=== PATIENT | female | born 1965 | race African-American/Black ===

== ENCOUNTER 2017-08-15 11:13 | Inpatient (IN) | payer OTHER, MEDICARE ==
[~2017-08-15] VITALS: Ht 157.5 cm; Wt 96.6 kg
[~2017-08-15 11:13] MED LIST: AZOR 10-40 MG1 EACH ORAL; HYDROXYZINE HCL25 M1 PO; LEVOTHYROXINE50 MCG ORAL; NORCO 10-325 T1 EACH ORAL; SULFAMETHOXAZO1 EAC1 ORAL
[2017-08-15] MEDS ORDERED: BYSTOLIC10 MG ORAL (11:24)
[2017-08-15] MEDS ORDERED: MULTIVITAMINS1 EAC2 ORAL (11:24)
--- NOTE | 2017-08-15 11:46 | Emergency Room Report ---
History of Present Illness General Chief Complaint: General Complaint Source: Patient Present Illness HPI 52-year-old female, no significant past medical history, presenting with hidradenitis under breast. Patient states that she was operated on in 2016. Now here for admission for surgery. Denies any fever chills. No other complaints Allergies: Coded Allergies: No Known Allergies (Unverified , 01/19/16) Patient History Past Medical History: see triage record Past Surgical History: none Pertinent Family History: none Last Menstrual Period: Post Reviewed Nursing Documentation: PMH: Agreed, PSxH: Agreed Nursing Documentation-PMH Hx Cardiac Problems: No - SLEEP APNEA Hx Hypertension: Yes Hx Pacemaker: No - HYPERTHYROIDISM, BILAT KNEE SURGERY Hx Cancer: No Hx Dialysis: No - Right rotator cuff repair. Carpal tunnel. Review of Systems All Other Systems: negative except mentioned in HPI Physical Exam Vital Signs Date Time Temp Pulse Resp B/P (MAP) Pulse Ox O2 Delivery O2 Flow Rate FiO2 08/15/17 11:19 97.9 58 17 162/95 99 Room Air 97.9 Sp02 EP Interpretation: reviewed, normal General Appearance: normal inspection, well appearing, no apparent distress, alert, GCS 15, non-toxic Head: normocephalic, atraumatic Eyes: bilateral eye normal inspection, bilateral eye PERRL, bilateral eye EOMI ENT: normal ENT inspection, normal pharynx, normal voice, moist mucus membranes Neck: normal inspection, full range of motion, supple Respiratory: normal inspection, lungs clear, normal breath sounds, no respiratory distress, no retraction, no wheezing, speaking full sentences, chest symmetrical Cardiovascular #1: normal inspection, regular rate, rhythm, normal capillary refill Cardiovascular #2: 2+ radial (R), 2+ radial (L) Gastrointestinal: normal inspection, non tender, soft, non-distended, no guarding Musculoskeletal: normal inspection, back normal, normal range of motion, non- tender Neurologic: normal inspection, alert, oriented x3, responsive, motor strength/ tone normal, sensory intact, normal gait, speech normal Psychiatric: normal inspection, judgement/insight normal, memory normal Skin: no rash, warm/dry, well hydrated, normal turgor, other - Under her breasts bilaterally noted to have some erythema, surgical markings Medical Decision Making Diagnostic Impression: Primary Impression: Hidradenitis suppurativa ER Course 52-year-old female, here for surgical removal for hydradenitis Plan: Obtain labs, ua ER course: Patient has been monitored during ED stay, HD stable Disposition: Patient is to be admitted to Med Surg D/W hospitalist Dr Carlson covering for Dr Goncalves Please note that this Emergency Department Report was dictated using Aseptiabicycle repair technician technology software, occasionally this can lead to erroneous entry secondary to interpretation by the dictation equipment. EKG Diagnostic Results EP Interpretation: Yes Rate: normal Rhythm: NSR ST Segments: No acute changes ASA given to patient: No Laboratory Tests Test 08/15/17 11:58 08/15/17 12:25 White Blood Count 7.8 K/UL (4.8-10.8) Red Blood Count 5.54 M/UL (4.20-5.40) H Hemoglobin 15.9 G/DL (12.0-16.0) Hematocrit 47.1 % (37.0-47.0) H Mean Corpuscular Volume 85 FL (80-99) Mean Corpuscular Hemoglobin 28.8 PG (27.0-31.0) Mean Corpuscular Hemoglobin Concent 33.8 G/DL (32.0-36.0) Red Cell Distribution Width 11.8 % (11.6-14.8) Platelet Count 257 K/UL (150-450) Mean Platelet Volume 7.8 FL (6.5-10.1) Neutrophils (%) (Auto) 74.5 % (45.0-75.0) Lymphocytes (%) (Auto) 16.7 % (20.0-45.0) L Monocytes (%) (Auto) 6.0 % (1.0-10.0) Eosinophils (%) (Auto) 2.1 % (0.0-3.0) Basophils (%) (Auto) 0.7 % (0.0-2.0) Sodium Level 142 MMOL/L (136-145) Potassium Level 3.6 MMOL/L (3.5-5.1) Chloride Level 103 MMOL/L (98-107) Carbon Dioxide Level 31 MMOL/L (21-32) Anion Gap 8 mmol/L (5-15) Blood Urea Nitrogen 11 mg/dL (7-18) Creatinine 1.0 MG/DL (0.55-1.30) Estimate Glomerular Filtration Rate > 60 mL/min (>60) Glucose Level 73 MG/DL (74-106) L Calcium Level 9.6 MG/DL (8.5-10.1) Total Bilirubin 0.8 MG/DL (0.2-1.0) Aspartate Amino Transferase (AST) 24 U/L (15-37) Alanine Aminotransferase (ALT) 21 U/L (12-78) Alkaline Phosphatase 92 U/L (46-116) Total Protein 9.2 G/DL (6.4-8.2) H Albumin 3.6 G/DL (3.4-5.0) Globulin 5.6 g/dL Albumin/Globulin Ratio 0.6 (1.0-2.7) L Prothrombin Time Pending Prothrombin Time INR Pending PTT Pending Last Vital Signs Date Time Temp Pulse Resp B/P (MAP) Pulse Ox O2 Delivery O2 Flow Rate FiO2 08/15/17 11:19 97.9 58 17 162/95 99 Room Air 97.9 Disposition: ADMITTED INPATIENT Condition: Serious Stacy Caballero M.D. Aug 15, 2017 11:46
[2017-08-15 11:50] VITALS: BP 112/72
[2017-08-15 12:19] LABS: BASOPHILS % (AUTO) 0.7 % (0.0-2.0); EOSINOPHILS % (AUTO) 2.1 % (0.0-3.0); HEMATOCRIT 47.1 % (37.0-47.0); HEMOGLOBIN 15.9 G/DL (12.0-16.0); LYMPHOCYTES % (AUTO) 16.7 % (20.0-45.0); MEAN CORPUSCULAR VOLUME 85 FL (80-99); NEUTROPHILS % (AUTO) 74.5 % (45.0-75.0); PLATELET COUNT 257 K/UL (150-450); RED BLOOD COUNT 5.54 M/UL (4.20-5.40); RED CELL DISTRIBUTION WIDTH 11.8 % (11.6-14.8); WHITE BLOOD COUNT 7.8 K/UL (4.8-10.8)
[2017-08-15 12:25] LABS: ANION GAP 8 mmol/L (5-15); BLOOD UREA NITROGEN 11 mg/dL (7-18); CALCIUM 9.6 MG/DL (8.5-10.1); CARBON DIOXIDE 31 MMOL/L (21-32); CHLORIDE 103 MMOL/L (98-107); POTASSIUM 3.6 MMOL/L (3.5-5.1); SODIUM 142 MMOL/L (136-145)
[2017-08-15 12:30] LABS: ALANINE AMINOTRANSFERASE 21 U/L (12-78); ALBUMIN 3.6 G/DL (3.4-5.0); ALBUMIN/GLOBULIN RATIO 0.6 (1.0-2.7); ALKALINE PHOSPHATASE 92 U/L (46-116); ASPARTATE AMINO TRANSFERASE 24 U/L (15-37); BILIRUBIN,TOTAL 0.8 MG/DL (0.2-1.0)
[2017-08-15] MEDS ORDERED: Acetaminophen 650 MG SUPP RECTAL PRN ×2 (13:00)
[2017-08-15] MEDS ORDERED: Morphine Sulfate 4mg/ml Inj IVP PRN ×2 (13:00)
--- NOTE | 2017-08-15 13:43 | History and Physical ---
History of Present Illness General Date patient seen: Aug 15, 2017 Time patient seen: 13:43 Reason for Hospitalization: Abscess Present Illness HPI 52y/o female with pmh of HTN, ELIDA on CPAP, Hidradenitis suppurative who presents with with b/l breast lesions w/ pain/swelling/redness. Pt notes worsening symptoms for the past few weeks. Denies f/c, n/v, d/c, chest pain, SOB. Pt states at baseline able to ambulate several blocks and climb at least a flight of stairs w/o symptoms. She also exercises. She was here in Jan 2016 for b/l axillary HS lesions. Her first surgery was complicated by postoperative respiratory failure and she was kept intubated and extubated the following day. It was thought secondary to her ELIDA and some fluid overload. Her 2nd surgery went better. She denies any new cardiac or pulmonary issues since. Allergies: Coded Allergies: No Known Allergies (Unverified , 01/19/16) Medication History Scheduled Amlodipine Bes/Olmesartan Med 10-40 Mg Tablet (Janette 10-40 Mg Tablet), 1 TAB ORAL DAILY, (Reported) Multivitamins* (Multivitamins*), 1 TAB ORAL DAILY, (Reported) Nebivolol Hcl (Bystolic*), 10 MG ORAL DAILY, (Reported) Patient History History Provided By: Patient, Family Member, Medical Record, PMD Healthcare decision maker Resuscitation status Advanced Directive on File Past Medical/Surgical History Past Medical/Surgical History: (1) ELIDA on CPAP (2) Morbid obesity (3) Hypertension (4) Hypothyroid (5) Hidradenitis suppurativa Family History Family History: Patient reports no known family medical history. Social History Social History: (1) No significant social history Review of Systems Constitutional: Reports: weakness Eye: Reports: no symptoms ENT: Reports: no symptoms Respiratory: Reports: no symptoms Cardiovascular: Reports: no symptoms Gastrointestinal: Reports: no symptoms Genitourinary: Reports: no symptoms Musculoskeletal: Reports: no symptoms Skin: Reports: no symptoms Psychiatric: Reports: no symptoms Neurological: Reports: no symptoms Endocrine: Reports: no symptoms Hematologic/Lymphatic: Reports: no symptoms All Other Systems: negative except mentioned in HPI Physical Exam Physical Exam Narrative General: alert, cooperative, no distress, appears stated age Head: normocephalic, without obvious abnormality, atraumatic Eyes: conjunctivae/corneas clear. PERRL, EOM's intact Throat: lips, mucosa, and tongue normal. MMM Neck: supple, symmetrical, trachea midline, and no JVD Lungs: clear to auscultation bilaterally Heart: regular rate and rhythm, S1, S2 normal, no murmur, click, rub or gallop Abdomen: soft, non-tender, non-distended, bowel sounds normal Extremities: extremities normal, atraumatic, no cyanosis or edema Pulses: 2+ and symmetric Skin: skin color, texture, turgor normal; no rashes or lesions Neurologic: grossly normal, no focal deficits Last 24 Hour Vital Signs Date Time Temp Pulse Resp B/P (MAP) Pulse Ox O2 Delivery O2 Flow Rate FiO2 08/15/17 13:10 97.9 65 17 112/72 99 Room Air 97.9 08/15/17 11:50 97.9 17 112/72 99 Room Air 97.9 08/15/17 11:19 97.9 58 17 162/95 99 Room Air 97.9 Laboratory Tests Test 08/15/17 11:58 08/15/17 12:25 White Blood Count 7.8 K/UL (4.8-10.8) Red Blood Count 5.54 M/UL (4.20-5.40) H Hemoglobin 15.9 G/DL (12.0-16.0) Hematocrit 47.1 % (37.0-47.0) H Mean Corpuscular Volume 85 FL (80-99) Mean Corpuscular Hemoglobin 28.8 PG (27.0-31.0) Mean Corpuscular Hemoglobin Concent 33.8 G/DL (32.0-36.0) Red Cell Distribution Width 11.8 % (11.6-14.8) Platelet Count 257 K/UL (150-450) Mean Platelet Volume 7.8 FL (6.5-10.1) Neutrophils (%) (Auto) 74.5 % (45.0-75.0) Lymphocytes (%) (Auto) 16.7 % (20.0-45.0) L Monocytes (%) (Auto) 6.0 % (1.0-10.0) Eosinophils (%) (Auto) 2.1 % (0.0-3.0) Basophils (%) (Auto) 0.7 % (0.0-2.0) Sodium Level 142 MMOL/L (136-145) Potassium Level 3.6 MMOL/L (3.5-5.1) Chloride Level 103 MMOL/L (98-107) Carbon Dioxide Level 31 MMOL/L (21-32) Anion Gap 8 mmol/L (5-15) Blood Urea Nitrogen 11 mg/dL (7-18) Creatinine 1.0 MG/DL (0.55-1.30) Estimat Glomerular Filtration Rate > 60 mL/min (>60) Glucose Level 73 MG/DL (74-106) L Calcium Level 9.6 MG/DL (8.5-10.1) Total Bilirubin 0.8 MG/DL (0.2-1.0) Aspartate Amino Transf (AST/SGOT) 24 U/L (15-37) Alanine Aminotransferase (ALT/SGPT) 21 U/L (12-78) Alkaline Phosphatase 92 U/L (46-116) Total Protein 9.2 G/DL (6.4-8.2) H Albumin 3.6 G/DL (3.4-5.0) Globulin 5.6 g/dL Albumin/Globulin Ratio 0.6 (1.0-2.7) L Prothrombin Time 10.1 SEC (9.30-11.50) Prothromb Time International Ratio 1.0 (0.9-1.1) Activated Partial Thromboplast Time 22 SEC (23-33) L Height (Feet): 5 Height (Inches): 2.00 Weight (Pounds): 213 Medications Current Medications Medications (Trade) Dose Ordered Sig/Sundar Route PRN Reason Start Time Stop Time Status Last Admin Dose Admin Acetaminophen (Tylenol) 650 mg Q4H PRN ORAL Mild Pain (Pain Scale 1-3) 08/15/17 13:00 09/14/17 12:59 Acetaminophen (Tylenol) 650 mg Q4H PRN ORAL fever 08/15/17 13:00 09/14/17 12:59 Acetaminophen (Tylenol) 650 mg Q4H PRN RECTAL Mild Pain (Pain Scale 1-3) 08/15/17 13:00 09/14/17 12:59 Acetaminophen (Tylenol) 650 mg Q4H PRN RECTAL fever 08/15/17 13:00 09/14/17 12:59 Amlodipine Besylate (Norvasc) 10 mg DAILY ORAL 08/16/17 09:00 09/15/17 08:59 Bisacodyl (Dulcolax) 10 mg HSPRN PRN RECTAL Constipation 08/15/17 13:00 09/14/17 12:59 Dextrose (Dextrose 50%) STAT PRN IV Hypoglycemia 08/15/17 13:00 09/14/17 12:59 Dextrose/Sodium Chloride 1,000 ml @ 75 mls/hr [id number] IV 08/16/17 06:00 09/15/17 05:59 Diphenhydramine HCl (Benadryl) 25 mg Q6H PRN ORAL Itching/Pruritis 08/15/17 13:00 09/14/17 12:59 Docusate Sodium (Colace) 100 mg EVERY 12 HOURS ORAL 08/15/17 21:00 09/14/17 20:59 Levothyroxine Sodium (Synthroid) 50 mcg ACBREAKFAST ORAL 08/16/17 06:30 09/15/17 06:29 Morphine Sulfate (Morphine Sulfate) 2 mg Q4H PRN IVP Moderate Pain (Pain Scale 4-6) 08/15/17 13:00 08/22/17 12:59 Morphine Sulfate (Morphine Sulfate) 4 mg Q4H PRN IVP Severe Pain (Pain Scale 7-10) 08/15/17 13:00 08/22/17 12:59 Multivitamins (Multivitamins) 1 tab DAILY ORAL 08/16/17 09:00 09/15/17 08:59 Nebivolol (Bystolic) 10 mg DAILY ORAL 08/16/17 09:00 09/15/17 08:59 Ondansetron HCl (Zofran) 4 mg Q6H PRN IVP Nausea & Vomiting 08/15/17 13:00 09/14/17 12:59 Polyethylene Glycol (Miralax) 17 gm HSPRN PRN ORAL Constipation 08/15/17 21:00 09/14/17 20:59 Zolpidem Tartrate (Ambien) 5 mg HSPRN PRN ORAL Insomnia 08/15/17 21:00 08/22/17 20:59 Assessment/Plan Problem List: (1) Abscess ICD Codes: L02.91 - Cutaneous abscess, unspecified SNOMED: 475704372 (2) Hidradenitis suppurativa ICD Codes: L73.2 - Hidradenitis suppurativa SNOMED: 37019532 (3) Hypertension ICD Codes: I10 - Essential (primary) hypertension SNOMED: 18886514 (4) ELIDA on CPAP ICD Codes: G47.33 - Obstructive sleep apnea (adult) (pediatric) SNOMED: 05957565 Status: stable Assessment/Plan Admit inpt Surgery consulted Check blood cultures x 2 Empiric IV ancef Cont home meds: amlodipine, nebivolol Hold ARB prior to surgery and resume if BP tolerates Pt states no longer on synthroid Pain control, bowel regimen Supportive care If patient is required to have surgery, based on the patient's medical history, and other available ancillary data, the patient is a LOW/INTERMEDIATE risk for an INTERMEDIATE risk procedure. Per the most recent ACC/AHA guidelines, the patient does not need any further cardiopulmonary testing prior to the procedure and there do not appear to be any clear medical contraindications to proceeding with the proposed procedure. METs>4. D/w pt/family, RN, SW/CM, surgery regarding mgmt and dispo Mynor Addison M.D. Aug 15, 2017 13:43
--- NOTE | 2017-08-15 13:57 | Diagnostic Imaging Report ---
Indication: [id number] Comparison: 01/20/2016 A single view chest radiograph was obtained. Findings: No definite infiltrate or pulmonary vascular congestion identified. The heart is enlarged. The bones are unremarkable. Impression: No acute disease
[2017-08-15] MEDS ORDERED: Lidocaine 1% MPF 10mg/ml 5ml INJ PRN (14:00)
[2017-08-15] MEDS ORDERED: Heparin 2000 units/Ns 1000ml INJ PRN (14:00)
--- NOTE | 2017-08-15 14:11 | Anethesia Preoperative Eval ---
Anesthesia Pre-op PMH/ROS General Date of Evaluation: Aug 15, 2017 Time of Evaluation: 14:05 Anesthesiologist: Krunal ASA Score: ASA 3 Mallampati Score Class I : Soft palate, uvula, fauces, pillars visible Class II: Soft palate, uvula, fauces visible Class III: Soft palate, base of uvula visible Class IV: Only hard plate visible Mallampati Classification: Class III Surgeon: Marisel Diagnosis: Recurrent HS Surgical Procedure: Excision of bilateral breasts hydradenitis Anesthesia History: difficult airway Family History: no anesthesia problems Allergies: Coded Allergies: No Known Allergies (Unverified , 01/19/16) Medications: see eMAR Past Medical History Cardiovascular: Reports: HTN, Denies: CAD, DE, valve dz, arrhythmia, other Pulmonary: Reports: ELIDA, Denies: asthma, COPD, other Gastrointestinal/Genitourinary: Reports: GERD, Denies: CRI, ESRD, other Neurologic/Psychiatric: Reports: depression/anxiety, Denies: dementia, CVA, TIA, other Endocrine: Reports: hypothyroidism, Denies: DM, steroids, other HEENT: Denies: cataract (L), cataract (R), glaucoma, [place] (L), [place] (R), other Hematology/Immune: Reports: anemia - mild, Denies: DVT, bleeding disorder, other Musculoskeletal/Integumentary: Reports: other - recurrent HS, Denies: OA, RA, DJD, DDD, edema Other: obesity - S/p laparoscopic gastric sleve placement PMH Narrative: as above PSxH Narrative: surgical treatment of axillary HS Gastric bypass Anesthesia Pre-op Phys. Exam Physician Exam Last Vital Signs Date Time Temp Pulse Resp B/P (MAP) Pulse Ox O2 Delivery O2 Flow Rate FiO2 08/15/17 13:10 97.9 65 17 112/72 99 Room Air 97.9 Constitutional: NAD Neurologic: CN 2-12 intact Cardiovascular: RRR, no M/R/G Respiratory: other - diminished breath sounds bilateerally Gastrointestinal: other - morbid obesity Airway Exam Mallampati Score: Class III MO: limited Neck: short ROM: limited Teeth: missing Dentures: no upper, no lower Anesthesia Pre-op A/P Labs Hematology Test 08/15/17 11:58 White Blood Count 7.8 K/UL (4.8-10.8) Red Blood Count 5.54 M/UL (4.20-5.40) H Hemoglobin 15.9 G/DL (12.0-16.0) Hematocrit 47.1 % (37.0-47.0) H Mean Corpuscular Volume 85 FL (80-99) Mean Corpuscular Hemoglobin 28.8 PG (27.0-31.0) Mean Corpuscular Hemoglobin Concent 33.8 G/DL (32.0-36.0) Red Cell Distribution Width 11.8 % (11.6-14.8) Platelet Count 257 K/UL (150-450) Mean Platelet Volume 7.8 FL (6.5-10.1) Neutrophils (%) (Auto) 74.5 % (45.0-75.0) Lymphocytes (%) (Auto) 16.7 % (20.0-45.0) L Monocytes (%) (Auto) 6.0 % (1.0-10.0) Eosinophils (%) (Auto) 2.1 % (0.0-3.0) Basophils (%) (Auto) 0.7 % (0.0-2.0) Coagulation Test 08/15/17 12:25 Prothrombin Time 10.1 SEC (9.30-11.50) Prothromb Time International Ratio 1.0 (0.9-1.1) Activated Partial Thromboplast Time 22 SEC (23-33) L Chemistry Test 08/15/17 11:58 Sodium Level 142 MMOL/L (136-145) Potassium Level 3.6 MMOL/L (3.5-5.1) Chloride Level 103 MMOL/L (98-107) Carbon Dioxide Level 31 MMOL/L (21-32) Anion Gap 8 mmol/L (5-15) Blood Urea Nitrogen 11 mg/dL (7-18) Creatinine 1.0 MG/DL (0.55-1.30) Estimat Glomerular Filtration Rate > 60 mL/min (>60) Glucose Level 73 MG/DL (74-106) L Calcium Level 9.6 MG/DL (8.5-10.1) Total Bilirubin 0.8 MG/DL (0.2-1.0) Aspartate Amino Transf (AST/SGOT) 24 U/L (15-37) Alanine Aminotransferase (ALT/SGPT) 21 U/L (12-78) Alkaline Phosphatase 92 U/L (46-116) Total Protein 9.2 G/DL (6.4-8.2) H Albumin 3.6 G/DL (3.4-5.0) Globulin 5.6 g/dL Albumin/Globulin Ratio 0.6 (1.0-2.7) L Studies Pre-op Studies: EKG - NSR Risk Assessment & Plan Assessment: ASA 3 Plan: GA with LMA no paralysis. Status Change Before Surgery: No Pre-Antibiotics Drug: as scheduled YAMILA MUNGUIA M.D. Aug 15, 2017 14:11
[2017-08-15 14:15] VITALS: BP 116/68
--- NOTE | 2017-08-15 15:56 | Diagnostic Imaging Report ---
Indication: intermediate project manager venous access Findings: After the indications, procedure, risks, complications, and alternatives of the procedure were explained, written informed consent was obtained. The left upper extremity was prepped with alcohol. All elements of maximal sterile barrier technique were followed including usage of a cap, mask, sterile gown, sterile gloves, hand hygiene and a large sterile sheet. Sonographic evaluation of the upper extremity was performed demonstrating a patent and compressible basilic vein. Access was obtained under real-time ultrasound guidance (with utilization of sterile gel and sterile probe cover) and digital image was saved and archived. An .018 wire was introduced. Needle exchanged for a 5 Turkmen peel-away sheath. Measurements were obtained. A 5 Turkmen dual-lumen Power PICC line catheter was cut to 47 cm and introduced over the wire. Peel-away sheath and wire were removed.Catheter was secured to the skin using 2-0 Prolene suture. Both ports aspirate and flush easily. Fluoroscopic images show distal tip in the superior vena cava. Total fluoroscopic time 0.4 minutes Impression: Successful placement of an upper extremity PICC line catheter
[2017-08-15 16:00] VITALS: BP 130/71
[2017-08-15] MEDS: ceFAZolin sod 1 GM in NS 55 ML IVP SCH (17:24)
[2017-08-15 20:00] VITALS: BP 134/69
[2017-08-15] MEDS: Docusate 100mg cap ORAL SCH (21:00)
[2017-08-15] MEDS ORDERED: Zolpidem 5mg tab ORAL PRN (21:00)
[2017-08-15] MEDS ORDERED: Miralax 17gm pkt ORAL PRN (21:00)
[2017-08-15] MEDS: Dyna-Hex 2% Top Sol 2oz TOPIC SCH (21:09)
[2017-08-16] VITALS (14 sets, daily range): BP systolic 113–144; BP diastolic 58–82
[2017-08-16] MEDS: ceFAZolin sod 1 GM in NS 55 ML IVP SCH ×3 (00:32→16:43)
[2017-08-16] MEDS ORDERED: D5 1/2NS 1,000 ML IV SCH (06:00)
[2017-08-16] MEDS ORDERED: Lidocaine 1% 10mg/ml/EPI 0.01mg/ml 50ml INJ ONE (07:19)
[2017-08-16] MEDS ORDERED: Bacitracin 50000 Units Vial ONE (07:19)
[2017-08-16] MEDS ORDERED: NeoSporin Gu Irrig 1ml Amp IRRIG ONE (07:19)
[2017-08-16] MEDS ORDERED: Sterile Water Irrig 1000ml IRRIG ONE (08:00)
[2017-08-16] MEDS ORDERED: Propofol 200mg/20ml IV ONE (08:00)
[2017-08-16] MEDS ORDERED: NS Irrig 1000ml ONE (08:00)
[2017-08-16] MEDS ORDERED: Midazolam 2mg/2ml Inj ONE (08:00)
[2017-08-16] MEDS ORDERED: fentaNYL 100 mcg/2 mL IV ONE (08:00)
[2017-08-16] MEDS ORDERED: Lidocaine 1% MPF 10mg/ml 5ml ONE (08:00)
[2017-08-16] MEDS ORDERED: LR 1000ml ONE (08:00)
--- NOTE | 2017-08-16 08:16 | Pre-Procedure Note/Attestation ---
Pre-Procedure Note/Attestation Complete Prior to Procedure Planned Procedure: bilateral Procedure Narrative: Bilateral breast debridement and flap elevation Attestation I attest that I discussed the nature of the procedure; its benefits; risks and complications; and alternatives (and the risks and benefits of such alternatives ), prior to the procedure, with the patient (or the patient's legal customer care representative). I attest that, if there was a reasonable possibility of needing a blood transfusion, the patient (or the patient's legal customer care representative) was given the [facility] standardized written summary, pursuant to the Isaac [place] Blood Safety Act ([place] Health and Safety Code # 1645, as amended). I attest that I re-evaluated the patient just prior to the surgery and that there has been no change in the patient's H&P, except as documented below: RAMIREZ YUN Aug 16, 2017 08:16
[2017-08-16] MEDS ORDERED: Zolpidem 5mg tab ORAL PRN (08:30)
[2017-08-16] MEDS ORDERED: Rate Change PCA 1 Each MISC PRN (08:30)
[2017-08-16] MEDS ORDERED: PCA Education Pamphlet MISC ONE (08:30)
[2017-08-16] MEDS: Docusate 100mg cap ORAL SCH ×2 (09:00→21:13)
--- NOTE | 2017-08-16 09:26 | Operative Note - PDOC ---
Operative Note Operative Note Pre-op Diagnosis: Bilateral breast HS Procedure: Bilateral breast debridement and flap elevation Post-op Diagnosis: same as pre-op Surgeon: Marisel Drum Reel Cutter: Laureano Anesthesia: general Specimen: yes Complications: none Condition: stable Estimated Blood Loss: minimal Drains: none Implant(s) used?: No RAMIREZ YUN Aug 16, 2017 09:26
--- NOTE | 2017-08-16 09:42 | Immediate Post-Op Evaluation ---
Immediate Post-Op Evalulation Immediate Post-Op Evalulation Procedure: kellie breast debridment Date of Evaluation: Aug 16, 2017 Time of Evaluation: 09:41 IV Fluids: 300 Blood Pressure Systolic: 135 Blood Pressure Diastolic: 73 Pulse Rate: 79 Respiratory Rate: 14 O2 Sat by Pulse Oximetry: 98 Temperature (Fahrenheit): 98.2 Pain Score (1-10): 0 Nausea: No Vomiting: No Complications none Patient Status: awake, reacts, patent Hydration Status: adequate Drug: ancef Given Within 1 Hr of Incision: Yes Time Given: 08:30 TEAGAN LA CRNA Aug 16, 2017 09:42
[2017-08-16] MEDS ORDERED: Acetaminophen (Non formulary) 100 ML IV ONE (09:45)
[2017-08-16] MEDS ORDERED: fentaNYL 100 mcg/2 mL IV PRN (09:45)
[2017-08-16] MEDS: Hydromorphone 0.5mg/0.5ml inj IVP PRN ×3 (09:49→11:09)
[2017-08-16] MEDS ORDERED: Hydromorphone 0.5mg/0.5ml inj ONE (09:50)
[2017-08-16] MEDS: PCA HYDROmorphone 1mg/ml 30 ML IV PRN ×2 (10:25→11:10)
--- NOTE | 2017-08-16 11:40 | 48 Hour Post Anesthesia Eval ---
Post Anesthesia Evaluation Procedure: kellie breast debridment Date of Evaluation: Aug 16, 2017 Time of Evaluation: 11:38 Blood Pressure Systolic: 133 0: 72 Pulse Rate: 67 Respiratory Rate: 14 O2 Sat by Pulse Oximetry: 99 Airway: patent Nausea: No Vomiting: No Hydration Status: adequate Cardiopulmonary Status: stable Mental Status/LOC: patient returned to baseline Follow-up Care/Observations: na Post-Anesthesia Complications: none Follow-up care needed: N/A TEAGAN LA CRNA Aug 16, 2017 11:40
--- NOTE | 2017-08-16 14:08 | Cardiology Report ---
APPROVED REPORT EXAM: Two-dimensional and M-mode echocardiogram with Doppler and color Doppler. INDICATION Pre-Op M-Mode DIMENSIONS IVSd1.5 (0.7-1.1cm)Left Atrium (MM)3.9 (1.6-4.0cm) LVDd4.0 (3.5-5.6cm)Aortic Root3.6 (2.0-3.7cm) PWd1.7 (0.7-1.1cm)Aortic Cusp Exc.2.0 (1.5-2.0cm) LVDs2.2 (2.5-4.0cm) PWs2.3 cm Normal left ventricular chamber size, systolic function and wall motion. Left ventricular ejection fraction estimated to be 60-65 %. Mild left ventricular hypertrophy. No evidence of pericardial effusion. Mild bi-atrial enlargement. Right ventricular chamber size is within normal limits. Focal aortic valve sclerosis with adequate cusp excursion. Thickened mitral valve leaflets with normal excursion. Mitral annulus and aortic root calcification. Normal pulmonic valve structure. Normal tricuspid valve structure. IVC dilated at 2.2 cm with slight physiologic collapse suggestive of increased RA pressure. A color flow and spectral Doppler study was performed and revealed: Trace to mild aortic regurgitation. Moderate mitral regurgitation. Mitral inflow indicates normal left ventricular diastolic function. Mild tricuspid regurgitation. Tricuspid systolic velocities suggests peak right ventricular systolic pressure of 42 mmHg, consistent with mild pulmonary hypertension. Mild pulmonic regurgitation present.
--- NOTE | 2017-08-16 15:47 | Consultation ---
DATE OF CONSULTATION: 08/16/2017 HISTORY OF PRESENT ILLNESS: This is a 52-year-old female with a known history of hidradenitis suppurativa who has previously undergone axillary reconstruction for her disease, who presented to the emergency room with bilateral breasts disease. She has had frequent areas of tenderness associated with drainage and pain. She was admitted by the medical team and started on IV antibiotics. PAST MEDICAL HISTORY: Significant for morbid obesity and hidradenitis. PAST SURGICAL HISTORY: Significant for hidradenitis excision in the axilla with reconstruction. ALLERGIES: None. MEDICATIONS: Include antihypertensives. PHYSICAL EXAMINATION: GENERAL: The patient is alert and oriented. HEART: Regular rate and rhythm. ABDOMEN: Soft, nontender, and nondistended, but obese. BREASTS: Examination of the breast reveals bilateral inferior pole of the breast hidradenitis suppurativa. ASSESSMENT AND PLAN: This is a 52-year-old female with hidradenitis suppurativa affecting lower pole of her breast. She will require staged debridement and reconstruction. She understands the risks and benefits of surgery and agrees to proceed. Brina Joiner M.D. DR: MARIA E JOB#: [id number] CC:
--- NOTE | 2017-08-16 16:02 | Cardiology Report ---
APPROVED REPORT EKG Measurement Heart [id number] Normal sinus rhythm Minimal voltage criteria for LVH, may be normal variant Nonspecific T wave abnormality Prolonged QT Abnormal ECG
--- NOTE | 2017-08-16 16:31 | Operative Note - Dictated ---
DATE OF OPERATION: 08/16/2017 PREOPERATIVE DIAGNOSIS: Bilateral breast hidradenitis suppurativa. POSTOPERATIVE DIAGNOSIS: Bilateral breast hidradenitis suppurativa. PROCEDURES: 1. Radical excision of right lower pole of breast hidradenitis suppurativa. 2. Elevation of a Axel chest wall flap for closure of right breast wound measuring 18 cm x 6 cm. 3. Elevation of a lower breast pole flap for staged closure of right breast wound. 4. Radical excision of left breast lower pole hidradenitis suppurativa. 5. Elevation of a chest wall Axel flap for closure of left breast defect, measuring similarly 18 cm x 7 cm. 6. Elevation of a lower pole breast flap for closure of left breast wound. SURGEON: Brina Joiner M.D. BEE ROBBER: Ramesh Tinsley M.D. ANESTHESIA: General. COMPLICATIONS: None. DRAINS: None. DISPOSITION: Stable to the recovery room. INDICATIONS FOR SURGERY: This is a 52-year-old female with a known history of hidradenitis suppurativa, who has previously undergone radical excision and reconstruction of her bilateral axillary tissues. She is approximately one year out now and has done well and presents now with bilateral breast HS in the lower pole of her breast. She will need a staged approach with first radical excision of flap elevation and secondary flap closure of her wounds on the second operation. The risks and benefits were explained to the patient and she agreed to proceed. DETAILS OF THE OPERATION: The patient was brought to the operating room and laid in the supine position on the operating room table. Her chest was prepped and draped in a sterile and usual fashion. We first began by marking out the areas of disease under both breasts with marking pen. Once this was done, a total of 10 mL of lidocaine with epinephrine was injected in both areas of disease. Began on the right side first by using a #10 blade to make an elliptical incision and dissection was carried radically down to the chest wall fascia. The defect that was created measured 18 cm x 6 cm on this side and was not amenable to primary closure. As such, a Axel flap based off of the chest wall was elevated with dissection carried down above the rectus muscle fascia with perforators of the superior epigastric artery perfusing this flap. In a similar fashion, a lower breast full flap was elevated based off of perforators, coming off of the internal mammary artery, and once this flap was elevated, the wound was copiously irrigated with pulse lavage. We turned our attention to the contralateral left breast disease. A #10 blade was used to make a left breast incision. Radical incision was carried down to the chest wall to completely excise the area of disease and once this was done, in a similar fashion, the Axel flap was elevated on the left superior chest with perforators of the superior epigastric artery feeding this flap and once the flap was fully elevated, we also raised a lower breast pole flap with perforators off the internal mammary artery feeding this as well. Proximal and distal incisions made on all the flaps the fully mobilize them. Copious irrigation was performed with pulse lavage. Given the fact that this is an infected wound, the decision was made not to close the primary wound at this time. Wet-to-dry dressings were applied. The patient was brought back to the operating room within 48 hours for definitive flap advancement. Brina Joiner M.D. DR: MARIA E JOB#: [id number] CC:
[2017-08-16] MEDS: PCA shift volume MISC SCH (19:00)
[2017-08-16] MEDS: Dyna-Hex 2% Top Sol 2oz TOPIC SCH (21:13)
[2017-08-16] MEDS: Heparin 5000 units/ml inj SUBQ SCH (21:16)
--- NOTE | 2017-08-16 22:10 | General Progress Note ---
Assessment/Plan Problem List: (1) Abscess ICD Codes: L02.91 - Cutaneous abscess, unspecified SNOMED: 038104480 (2) Hidradenitis suppurativa ICD Codes: L73.2 - Hidradenitis suppurativa SNOMED: 48303023 (3) Hypertension ICD Codes: I10 - Essential (primary) hypertension SNOMED: 52470701 (4) ELIDA on CPAP ICD Codes: G47.33 - Obstructive sleep apnea (adult) (pediatric) SNOMED: 09156570 (5) Morbid obesity ICD Codes: E66.01 - Morbid (severe) obesity due to excess calories SNOMED: 891385538, [id number] Status: stable Assessment/Plan Appreciate surgery rec's s/p Bilateral breast debridement and flap elevation on 08/16/17 Empiric IV ancef F/u cultures Wound care per surgery Cont home meds but hold ARB for now Cont home CPAP Post operative recommendations include: - encourage mobilization/ambulation - encourage incentive spirometry to optimize pulmonary hygiene - DVT/GI prophylaxis as appropriate - ctm CBC and hemodynamics - ctm electrolytes, adjust/replete prn - pain control, supportive care, bowel regimen FULL CODE A total of 32min of extra time was spent on this encounter in addition to normal encounter time for care/coordination and counseling. D/w pt, RN, SW/CM, surgery regarding mgmt and dispo. D/w surgery re postop mgmt Subjective Date patient seen: Aug 16, 2017 Time patient seen: 14:00 ROS Limited/Unobtainable: No Constitutional: Reports: no symptoms HEENT: Reports: no symptoms Cardiovascular: Reports: no symptoms Respiratory: Reports: no symptoms Gastrointestinal/Abdominal: Reports: no symptoms Genitourinary: Reports: no symptoms Neurologic/Psychiatric: Reports: no symptoms Endocrine: Reports: no symptoms Hematologic/Lymphatic: Reports: no symptoms Allergies: Coded Allergies: No Known Allergies (Unverified , 01/19/16) All Systems: reviewed and negative except above Subjective No acute o/n events s/p Bilateral breast debridement and flap elevation today Pain controlled. Denies f/c, n/v, d/c, chest pain, SOB Objective Last 24 Hour Vital Signs Date Time Temp Pulse Resp B/P (MAP) Pulse Ox O2 Delivery O2 Flow Rate FiO2 08/16/17 20:38 98.1 66 20 125/76 96 Room Air 98.1 2/28/18 20:00 18 08/16/17 16:15 18 08/16/17 16:00 97.6 67 19 126/74 90 Room Air 97.6 08/16/17 12:15 18 08/16/17 11:45 18 08/16/17 11:40 67 14 99 08/16/17 11:15 18 08/16/17 11:00 97.2 65 19 132/77 94 Room Air 97.2 08/16/17 11:00 18 08/16/17 10:55 18 08/16/17 10:55 97.2 08/16/17 10:45 98.4 65 18 126/76 100 Nasal Cannula 3.0 98.4 08/16/17 10:45 97.2 08/16/17 10:40 18 08/16/17 10:30 70 13 123/70 100 Nasal Cannula 3.0 08/16/17 10:25 17 08/16/17 10:25 98.3 08/16/17 10:19 61 16 135/78 100 Nasal Cannula 3.0 08/16/17 10:19 98.3 08/16/17 10:10 60 19 144/82 100 Nasal Cannula 3.0 08/16/17 10:00 56 12 138/76 100 Nasal Cannula 3.0 08/16/17 09:49 64 15 138/77 100 Nasal Cannula 3.0 08/16/17 09:49 98.3 08/16/17 09:42 208.8 79 14 98 08/16/17 09:40 65 16 137/78 100 Simple Mask 6.0 08/16/17 09:35 67 20 128/73 100 Simple Mask 6.0 08/16/17 09:30 98.2 64 21 135/75 100 Simple Mask 6.0 98.2 08/16/17 04:00 98.4 50 18 128/66 100 98.4 08/16/17 00:00 98.1 51 18 113/58 100 98.1 Intake and Output 08/15/17 08/16/17 19:00 07:00 Intake Total 460 ml 375 ml Balance 460 ml 375 ml Intake Oral 460 ml 320 ml IV Total 55 ml # Voids 3 3 Height (Feet): 5 Height (Inches): 2.00 Weight (Pounds): 213 Objective General: alert, cooperative, no distress, appears stated age Head: normocephalic, without obvious abnormality, atraumatic Eyes: conjunctivae/corneas clear. PERRL, EOM's intact Throat: lips, mucosa, and tongue normal. MMM Neck: supple, symmetrical, trachea midline, and no JVD Lungs: clear to auscultation bilaterally Heart: regular rate and rhythm, S1, S2 normal, no murmur, click, rub or gallop Abdomen: soft, non-tender, non-distended, bowel sounds normal Extremities: extremities normal, atraumatic, no cyanosis or edema Pulses: 2+ and symmetric Skin: skin color, texture, turgor normal; dressings c/d/i Neurologic: grossly normal, no focal deficits Mynor Addison M.D. Aug 16, 2017 22:10
[2017-08-17] VITALS: BP 124/70
[2017-08-17] MEDS: ceFAZolin sod 1 GM in NS 55 ML IVP SCH ×3 (01:06→16:57)
[2017-08-17 04:00] VITALS: BP 137/75
[2017-08-17] MEDS: Heparin 5000 units/ml inj SUBQ SCH ×3 (05:37→21:17)
[2017-08-17] MEDS: PCA shift volume MISC SCH ×2 (07:31→19:17)
[2017-08-17 08:00] VITALS: BP 112/66
[2017-08-17] MEDS: Docusate 100mg cap ORAL SCH ×2 (09:00→21:00)
--- NOTE | 2017-08-17 09:41 | General Progress Note ---
Progress Note Progress Note Pt seen and examined. She is now POD# 1 from bilateral breast tissue excision and flap elevation. Doing well. To OR in Am for closure of wounds. Ramirez Yun M.D. RAMIREZ YUN Aug 17, 2017 09:41
[2017-08-17] MEDS: PCA HYDROmorphone 1mg/ml 30 ML IV PRN (10:26)
--- NOTE | 2017-08-17 11:11 | 48 Hour Post Anesthesia Eval ---
Post Anesthesia Evaluation Procedure: kellie breast debridment Date of Evaluation: Aug 17, 2017 Time of Evaluation: 11:10 Blood Pressure Systolic: 118 0: 64 Pulse Rate: 72 Respiratory Rate: 20 Temperature (Fahrenheit): 97.6 O2 Sat by Pulse Oximetry: 99 Airway: patent Nausea: No Vomiting: No Pain Intensity: 3 Hydration Status: adequate Cardiopulmonary Status: stable Mental Status/LOC: patient returned to baseline Follow-up Care/Observations: n/a Post-Anesthesia Complications: none Follow-up care needed: N/A YAMLIA MUNGUIA M.D. Aug 17, 2017 11:11
[2017-08-17 12:00] VITALS: BP 127/73
--- NOTE | 2017-08-17 15:34 | General Progress Note ---
Assessment/Plan Problem List: (1) Abscess ICD Codes: L02.91 - Cutaneous abscess, unspecified SNOMED: 729377174 (2) Hidradenitis suppurativa ICD Codes: L73.2 - Hidradenitis suppurativa SNOMED: 57472972 (3) Hypertension ICD Codes: I10 - Essential (primary) hypertension SNOMED: 75811722 (4) ELIDA on CPAP ICD Codes: G47.33 - Obstructive sleep apnea (adult) (pediatric) SNOMED: 57446499 (5) Morbid obesity ICD Codes: E66.01 - Morbid (severe) obesity due to excess calories SNOMED: 734471249, [id number] Status: stable Assessment/Plan Appreciate surgery rec's s/p bilateral breast debridement and flap elevation on 08/16/17 Plan for 2nd surgery tomorrow, NPO at [place] Empiric IV ancef F/u cultures Wound care per surgery Cont home meds but hold ARB for now Cont home CPAP Post operative recommendations include: - encourage mobilization/ambulation - encourage incentive spirometry to optimize pulmonary hygiene - DVT/GI prophylaxis as appropriate - ctm CBC and hemodynamics - ctm electrolytes, adjust/replete prn - pain control, supportive care, bowel regimen FULL CODE A total of 31min of extra time was spent on this encounter in addition to normal encounter time for care/coordination and counseling. D/w pt, RN, SW/CM, surgery regarding mgmt and dispo. D/w surgery re postop mgmt Subjective Date patient seen: Aug 17, 2017 Time patient seen: 15:34 ROS Limited/Unobtainable: No Constitutional: Reports: no symptoms HEENT: Reports: no symptoms Cardiovascular: Reports: no symptoms Respiratory: Reports: no symptoms Gastrointestinal/Abdominal: Reports: no symptoms Genitourinary: Reports: no symptoms Neurologic/Psychiatric: Reports: no symptoms Endocrine: Reports: no symptoms Hematologic/Lymphatic: Reports: no symptoms Allergies: Coded Allergies: No Known Allergies (Unverified , 01/19/16) All Systems: reviewed and negative except above Subjective No acute o/n events s/p Bilateral breast debridement and flap elevation POD#1 Pain controlled. Denies f/c, n/v, d/c, chest pain, SOB Objective Last 24 Hour Vital Signs Date Time Temp Pulse Resp B/P (MAP) Pulse Ox O2 Delivery O2 Flow Rate FiO2 08/17/17 12:00 98.2 70 18 127/73 95 Room Air 98.2 08/17/17 12:00 18 08/17/17 11:11 207.7 72 20 99 08/17/17 10:31 18 08/17/17 10:30 18 08/17/17 09:03 77 112/66 08/17/17 08:00 18 08/17/17 08:00 97.4 77 20 112/66 97 Room Air 97.4 08/17/17 04:00 18 08/17/17 04:00 96.7 63 20 137/75 98 Room Air 96.7 08/17/17 00:00 18 08/17/17 00:00 97.9 65 20 124/70 97 Room Air 97.9 08/16/17 20:38 98.1 66 20 125/76 96 Room Air 98.1 08/16/17 20:00 18 08/16/17 16:15 18 08/16/17 16:00 97.6 67 19 126/74 90 Room Air 97.6 Intake and Output 08/16/17 08/17/17 19:00 07:00 Intake Total 680 ml 295 ml Output Total 8 ml Balance 672 ml 295 ml Intake Oral 240 ml IV Total 680 ml 55 ml Output Urine Total 3 ml Estimated Blood Loss 5 ml # Voids 2 Height (Feet): 5 Height (Inches): 2.00 Weight (Pounds): 213 Objective General: alert, cooperative, no distress, appears stated age Head: normocephalic, without obvious abnormality, atraumatic Eyes: conjunctivae/corneas clear. PERRL, EOM's intact Throat: lips, mucosa, and tongue normal. MMM Neck: supple, symmetrical, trachea midline, and no JVD Lungs: clear to auscultation bilaterally Heart: regular rate and rhythm, S1, S2 normal, no murmur, click, rub or gallop Abdomen: soft, non-tender, non-distended, bowel sounds normal Extremities: extremities normal, atraumatic, no cyanosis or edema Pulses: 2+ and symmetric Skin: skin color, texture, turgor normal; dressings c/d/i Neurologic: grossly normal, no focal deficits Mynor Addison M.D. Aug 17, 2017 15:34
[2017-08-17 16:00] VITALS: BP 128/78
[2017-08-17] MEDS: D5 1/2NS 1,000 ML IV SCH (16:03)
[2017-08-17 20:00] VITALS: BP 119/71
[2017-08-17] MEDS: Dyna-Hex 2% Top Sol 2oz TOPIC SCH (21:13)
[2017-08-18] VITALS (15 sets, daily range): BP systolic 105–164; BP diastolic 61–95
[2017-08-18] MEDS: ceFAZolin sod 1 GM in NS 55 ML IVP SCH ×3 (00:29→23:49)
[2017-08-18] MEDS: Heparin 5000 units/ml inj SUBQ SCH ×2 (05:05→20:44)
[2017-08-18] MEDS: D5 1/2NS 1,000 ML IV SCH ×4 (05:05→23:56)
[2017-08-18] MEDS ORDERED: Bacitracin 50000 Units Vial ONE (06:56)
[2017-08-18] MEDS ORDERED: Lidocaine 1% 10mg/ml/EPI 0.01mg/ml 50ml INJ ONE (06:56)
[2017-08-18] MEDS ORDERED: NeoSporin Gu Irrig 1ml Amp IRRIG ONE (06:56)
[2017-08-18] MEDS: PCA shift volume MISC SCH (07:23)
[2017-08-18] MEDS ORDERED: Sodium Chloride 10ml vial INJ ONE (07:30)
[2017-08-18] MEDS ORDERED: fentaNYL 100 mcg/2 mL IV ONE (07:30)
[2017-08-18] MEDS ORDERED: Propofol 200mg/20ml IV ONE (07:30)
[2017-08-18] MEDS ORDERED: Morphine Sulfate 10mg/ml Inj ONE (07:30)
[2017-08-18] MEDS ORDERED: Sterile Water Irrig 1000ml IRRIG ONE (07:30)
[2017-08-18] MEDS ORDERED: LR 1000ml ONE (07:30)
[2017-08-18] MEDS ORDERED: NS Irrig 1000ml ONE (07:30)
[2017-08-18] MEDS ORDERED: Midazolam 2mg/2ml Inj ONE (07:30)
--- NOTE | 2017-08-18 07:39 | Pre-Procedure Note/Attestation ---
Pre-Procedure Note/Attestation Complete Prior to Procedure Planned Procedure: bilateral Procedure Narrative: Bilateral breast wound closure Indications for Procedure Pre-Operative Diagnosis: Bilateral breast HS Attestation I attest that I discussed the nature of the procedure; its benefits; risks and complications; and alternatives (and the risks and benefits of such alternatives ), prior to the procedure, with the patient (or the patient's legal public health representative). I attest that, if there was a reasonable possibility of needing a blood transfusion, the patient (or the patient's legal public health representative) was given the [facility] standardized written summary, pursuant to the Isaac Gananda Blood Safety Act ([place] Health and Safety Code # 1645, as amended). I attest that I re-evaluated the patient just prior to the surgery and that there has been no change in the patient's H&P, except as documented below: RAMIREZ YUN Aug 18, 2017 07:39
[2017-08-18] MEDS ORDERED: Rate Change PCA 1 Each MISC PRN (07:45)
[2017-08-18] MEDS ORDERED: PCA Education Pamphlet MISC ONE (07:45)
[2017-08-18] MEDS ORDERED: Zolpidem 5mg tab ORAL PRN (07:45)
[2017-08-18] MEDS ORDERED: PCA HYDROmorphone 1mg/ml 30 ML IV PRN (07:45)
[2017-08-18] MEDS ORDERED: DiphenhydrAMINE 50mg/ml Inj IVP PRN ×2 (07:45→08:30)
[2017-08-18] MEDS ORDERED: Surgicel 4in x 8in TOPIC ONE (08:09)
[2017-08-18] MEDS ORDERED: LR 1000ml 1,000 ML IVLG SCH (08:22)
--- NOTE | 2017-08-18 08:22 | Anethesia Preoperative Eval ---
Anesthesia Pre-op PMH/ROS General Date of Evaluation: Aug 18, 2017 Time of Evaluation: 07:16 Anesthesiologist: Krunal ASA Score: ASA 3 Mallampati Score Class I : Soft palate, uvula, fauces, pillars visible Class II: Soft palate, uvula, fauces visible Class III: Soft palate, base of uvula visible Class IV: Only hard plate visible Mallampati Classification: Class III Surgeon: Marisel Diagnosis: Recurrent HS Surgical Procedure: Revision and closure of beasts wounds Anesthesia History: none Family History: no anesthesia problems Allergies: Coded Allergies: No Known Allergies (Unverified , 01/19/16) Past Medical History Cardiovascular: Reports: HTN, Denies: CAD, AR, valve dz, arrhythmia, other Pulmonary: Reports: ELIDA, Denies: asthma, COPD, other Gastrointestinal/Genitourinary: Reports: GERD, Denies: CRI, ESRD, other Neurologic/Psychiatric: Reports: depression/anxiety, Denies: dementia, CVA, TIA, other Endocrine: Reports: hypothyroidism, Denies: DM, steroids, other HEENT: Denies: cataract (L), cataract (R), glaucoma, CURYUNG (L), CURYUNG (R), other Hematology/Immune: Reports: anemia - mild, Denies: DVT, bleeding disorder, other Musculoskeletal/Integumentary: Denies: OA, RA, DJD, DDD, edema, other Other: obesity - morbid obesity s/p fastric bypass PMH Narrative: as above PSxH Narrative: Gastric bypass Surgical treatment of HS Anesthesia Pre-op Phys. Exam Physician Exam Last Vital Signs Date Time Temp Pulse Resp B/P (MAP) Pulse Ox O2 Delivery O2 Flow Rate FiO2 08/18/17 04:00 18 08/18/17 04:00 98.8 58 122/61 98 Room Air 98.8 08/16/17 10:45 3.0 Constitutional: NAD Neurologic: CN 2-12 intact Cardiovascular: RRR, no M/R/G Respiratory: CTA Gastrointestinal: other - Morbid obesity Airway Exam Mallampati Score: Class III MO: limited Neck: short ROM: limited Teeth: intact Dentures: no upper, no lower Anesthesia Pre-op A/P Labs see chart Studies Pre-op Studies: EKG - NSR Risk Assessment & Plan Assessment: ASA 3 Plan: GA with LMA no paralysis Status Change Before Surgery: No Pre-Antibiotics Drug: Ancef 1 gr. Given Within 1 Hr of Incision: Yes Time Given: 07:56 YAMILA MUNGUIA M.D. Aug 18, 2017 08:22
[2017-08-18] MEDS ORDERED: fentaNYL 100 mcg/2 mL IV PRN (08:30)
[2017-08-18] MEDS ORDERED: Midazolam 2mg/2ml Inj IVP PRN (08:30)
[2017-08-18] MEDS ORDERED: Ketorolac 30mg Inj IV PRN (08:30)
[2017-08-18] MEDS ORDERED: Hydromorphone 0.5mg/0.5ml inj IVP PRN (08:30)
--- NOTE | 2017-08-18 08:58 | Operative Note - PDOC ---
Operative Note Operative Note Pre-op Diagnosis: Bilateral breast HS Procedure: Bilateral breast wound closure Post-op Diagnosis: same as pre-op Surgeon: Marisel Manager Of Finance: Laureano Anesthesia: general Specimen: yes Complications: none Condition: stable Estimated Blood Loss: minimal Drains: none Implant(s) used?: No RAMIREZ YUN Aug 18, 2017 08:58
--- NOTE | 2017-08-18 09:12 | Immediate Post-Op Evaluation ---
Immediate Post-Op Evalulation Immediate Post-Op Evalulation Procedure: Revision and closure of bilateral breast wounds Date of Evaluation: Aug 18, 2017 Time of Evaluation: 09:11 IV Fluids: 600 Blood Products: none Estimated Blood Loss: 50 Urinary Output: none Blood Pressure Systolic: 153 Blood Pressure Diastolic: 72 Pulse Rate: 64 Respiratory Rate: 22 O2 Sat by Pulse Oximetry: 99 Temperature (Fahrenheit): 97.8 Pain Score (1-10): 2 Nausea: No Vomiting: No Complications none Patient Status: reacts, patent, none Hydration Status: adequate YAMILA MUNGUIA M.D. Aug 18, 2017 09:12
[2017-08-18] MEDS ORDERED: Hydromorphone 0.5mg/0.5ml inj ONE (09:57)
[2017-08-18 10:53] LABS: BASOPHILS % (AUTO) 0.5 % (0.0-2.0); HEMATOCRIT 39.3 % (37.0-47.0); HEMOGLOBIN 13.8 G/DL (12.0-16.0); LYMPHOCYTES % (AUTO) 17.9 % (20.0-45.0); MEAN CORPUSCULAR VOLUME 85 FL (80-99); MONOCYTES % (AUTO) 6.8 % (1.0-10.0); NEUTROPHILS % (AUTO) 72.8 % (45.0-75.0); PLATELET COUNT 198 K/UL (150-450); RED BLOOD COUNT 4.61 M/UL (4.20-5.40); RED CELL DISTRIBUTION WIDTH 11.5 % (11.6-14.8); WHITE BLOOD COUNT 7.8 K/UL (4.8-10.8)
[2017-08-18 11:27] LABS: ANION GAP 8 mmol/L (5-15); BLOOD UREA NITROGEN 5 mg/dL (7-18); CALCIUM 9.3 MG/DL (8.5-10.1); CARBON DIOXIDE 28 MMOL/L (21-32); CHLORIDE 104 MMOL/L (98-107); CREATININE 0.8 MG/DL (0.55-1.30); POTASSIUM 3.7 MMOL/L (3.5-5.1); SODIUM 140 MMOL/L (136-145)
[2017-08-18] MEDS: Docusate 100mg cap ORAL SCH ×2 (12:49→20:41)
--- NOTE | 2017-08-18 15:30 | Operative Note - Dictated ---
DATE OF OPERATION: 08/18/2017 PREOPERATIVE DIAGNOSIS: Bilateral open breast wound, status post radical excision of hidradenitis. POSTOPERATIVE DIAGNOSIS: Bilateral open breast wound, status post radical excision of hidradenitis. PROCEDURE: 1. Preparation of right breast wound for flap closure. 2. Reelevation of Axel flap for closure of right breast wound. 3. Preparation of left breast wound for flap closure. 4. Reelevation of Axel flap for closure of left breast wound. SURGEON: Brina Joiner M.D. PULLER OUT: Ramesh Tinsley M.D. ANESTHESIA: General. COMPLICATIONS: None. DRAINS: Included a size 15 ZAINAB in both breast wounds. DISPOSITION: Stable to the recovery room. INDICATIONS FOR SURGERY: This is a 52-year-old female, who is now 48 hours status post radical excision of bilateral inferior pole of breast hidradenitis, who has been doing a local wound care with dressing changes over the past 48 hours on IV antibiotics and is now ready to undergo definitive closure of her wound. She underwent elevation of an inferior pole breast flap as well as a Axel flap of the chest wall for staged closure of both wounds today. She will be brought to the operating room for Axel flap advancement on both sides for closure. She understood the risks and benefits of surgery and agreed to proceed. DETAILS OF THE OPERATION: The patient was brought to the operating room and laid in the supine position on the operating table. Her bilateral breasts wound and her chest were prepped and draped in a sterile and usual fashion. We first began by debriding some of the nonviable tissue off of both breast wounds first on the right than on the left. Once the wound was prepared for flap advancement, the wounds were copiously irrigated with pulse lavage. Hemostasis was achieved and we then began by re-elevating the right chest wall Axel flap based off of perforators of the superior epigastric artery perforators perfusing it. The flap was advanced and reapproximated to the lower pole of the breast wound using #0 and 2-0 Vicryl sutures and 3-0 Monocryl was used to close the skin. In a similar fashion, the left breast wound was closed by re-advancing of the left chest Axel flap based off of perforators of the superior epigastric artery and the flap was fully mobilized once again to allow for reapproximation to the lower pole of the breast wound and 0 and 2-0 Vicryl sutures were used to close the skin over a size 15 Andres-Mack drain and 3-0 Monocryl was used to close the skin. The patient tolerated the procedure well and there was no complications. Brina Joiner M.D. DR: MARCELLO JOB#: [id number] CC:
[2017-08-18] MEDS ORDERED: PCA shift volume MISC SCH (19:00)
[2017-08-18] MEDS: Dyna-Hex 2% Top Sol 2oz TOPIC SCH (20:41)
--- NOTE | 2017-08-18 23:45 | General Progress Note ---
Assessment/Plan Problem List: (1) Abscess ICD Codes: L02.91 - Cutaneous abscess, unspecified SNOMED: 447096995 (2) Hidradenitis suppurativa ICD Codes: L73.2 - Hidradenitis suppurativa SNOMED: 65501406 (3) Hypertension ICD Codes: I10 - Essential (primary) hypertension SNOMED: 93206916 (4) ELIDA on CPAP ICD Codes: G47.33 - Obstructive sleep apnea (adult) (pediatric) SNOMED: 73731752 (5) Morbid obesity ICD Codes: E66.01 - Morbid (severe) obesity due to excess calories SNOMED: 313848884, [id number] Status: stable Assessment/Plan Appreciate surgery rec's s/p bilateral breast debridement and flap elevation on 08/16/17 s/p bilateral breast wound closure on 08/18/17 Empiric IV ancef F/u cultures Wound care per surgery Cont home meds but hold ARB for now Cont home CPAP Post operative recommendations include: - encourage mobilization/ambulation - encourage incentive spirometry to optimize pulmonary hygiene - DVT/GI prophylaxis as appropriate - ctm CBC and hemodynamics - ctm electrolytes, adjust/replete prn - pain control, supportive care, bowel regimen FULL CODE A total of 33min of extra time was spent on this encounter in addition to normal encounter time for care/coordination and counseling. D/w pt, RN, SW/CM, surgery regarding mgmt and dispo. D/w surgery re postop mgmt Subjective Date patient seen: Aug 18, 2017 Time patient seen: 14:00 ROS Limited/Unobtainable: No Constitutional: Reports: no symptoms HEENT: Reports: no symptoms Cardiovascular: Reports: no symptoms Respiratory: Reports: no symptoms Gastrointestinal/Abdominal: Reports: no symptoms Genitourinary: Reports: no symptoms Endocrine: Reports: no symptoms Hematologic/Lymphatic: Reports: no symptoms Allergies: Coded Allergies: No Known Allergies (Unverified , 01/19/16) Subjective No acute o/n events s/p bilateral breast debridement and flap elevation POD#2 s/p bilateral breast wound closure POD#0 Pain controlled. Denies f/c, n/v, d/c, chest pain, SOB Objective Last 24 Hour Vital Signs Date Time Temp Pulse Resp B/P (MAP) Pulse Ox O2 Delivery O2 Flow Rate FiO2 08/18/17 20:00 18 08/18/17 20:00 98.9 68 18 143/81 95 Room Air 98.9 08/18/17 16:00 18 08/18/17 16:00 98.5 76 18 156/95 98 Room Air 98.5 08/18/17 12:50 74 144/81 08/18/17 12:50 74 144/81 08/18/17 12:00 98.2 80 18 140/83 96 Nasal Cannula 2.0 98.2 08/18/17 12:00 18 08/18/17 10:17 98.6 08/18/17 10:17 98.6 08/18/17 10:15 17 08/18/17 10:08 98.6 72 19 149/80 100 Nasal Cannula 3.0 98.6 08/18/17 10:00 17 08/18/17 10:00 97.0 71 18 143/79 94 Nasal Cannula 3.0 97.0 08/18/17 09:59 98.0 08/18/17 09:59 67 17 163/79 100 Nasal Cannula 3.0 08/18/17 09:50 67 16 164/88 100 Nasal Cannula 3.0 08/18/17 09:47 98.0 08/18/17 09:47 16 08/18/17 09:40 62 16 160/87 100 Nasal Cannula 3.0 08/18/17 09:30 61 16 161/78 100 Simple Mask 6.0 08/18/17 09:20 65 15 154/78 100 Simple Mask 6.0 08/18/17 09:12 63 20 142/73 100 Simple Mask 6.0 08/18/17 09:12 208.0 64 22 99 08/18/17 09:07 62 19 153/72 100 Simple Mask 6.0 08/18/17 09:02 98.0 69 22 157/70 100 Simple Mask 6.0 98.0 08/18/17 04:00 18 08/18/17 04:00 98.8 58 18 122/61 98 Room Air 98.8 08/18/17 00:00 18 08/18/17 00:00 99.4 64 18 105/65 98 Room Air 99.4 Intake and Output 08/17/17 08/18/17 19:00 07:00 Intake Total 585 ml 675 ml Balance 585 ml 675 ml Intake Oral 250 ml IV Total 335 ml 675 ml # Voids 2 1 Laboratory Tests 08/18/17 10:35: White Blood Count 7.8, Red Blood Count 4.61, Hemoglobin 13.8, Hematocrit 39.3, Mean Corpuscular Volume 85, Mean Corpuscular Hemoglobin 29.8, Mean Corpuscular Hemoglobin Concent 35.0, Red Cell Distribution Width 11.5L, Platelet Count 198, Mean Platelet Volume 8.0, Neutrophils (%) (Auto) 72.8, Lymphocytes (%) (Auto) 17.9L, Monocytes (%) (Auto) 6.8, Eosinophils (%) (Auto) 2.0, Basophils (%) (Auto ) 0.5, Sodium Level 140, Potassium Level 3.7, Chloride Level 104, Carbon Dioxide Level 28, Anion Gap 8, Blood Urea Nitrogen 5L, Creatinine 0.8, Estimat Glomerular Filtration Rate > 60, Glucose Level 86, Calcium Level 9.3 Height (Feet): 5 Height (Inches): 2.00 Weight (Pounds): 213 Objective General: alert, cooperative, no distress, appears stated age Head: normocephalic, without obvious abnormality, atraumatic Eyes: conjunctivae/corneas clear. PERRL, EOM's intact Throat: lips, mucosa, and tongue normal. MMM Neck: supple, symmetrical, trachea midline, and no JVD Lungs: clear to auscultation bilaterally Heart: regular rate and rhythm, S1, S2 normal, no murmur, click, rub or gallop Abdomen: soft, non-tender, non-distended, bowel sounds normal Extremities: extremities normal, atraumatic, no cyanosis or edema Pulses: 2+ and symmetric Skin: skin color, texture, turgor normal; dressings c/d/i Neurologic: grossly normal, no focal deficits Mynor Addison M.D. Aug 18, 2017 23:45
[2017-08-19] VITALS: BP 148/92
[2017-08-19 04:00] VITALS: BP 142/82
[2017-08-19] MEDS ORDERED: Rate Change PCA 1 Each MISC PRN (07:30)
[2017-08-19] MEDS ORDERED: Naloxone 0.4mg/ml Inj IV PRN (07:30)
[2017-08-19] MEDS: ceFAZolin sod 1 GM in NS 55 ML IVP SCH ×3 (07:39→23:45)
[2017-08-19 08:00] VITALS: BP 118/66
--- NOTE | 2017-08-19 09:04 | General Progress Note ---
Progress Note Progress Note Pt seen and examined. POD# 1 from closure of breast wounds. Doing well. Plan to take down dressings on Monday AM. RAMIREZ Zayas MD Aug 19, 2017 09:04
[2017-08-19] MEDS: Docusate 100mg cap ORAL SCH ×2 (09:16→21:05)
[2017-08-19] MEDS: Heparin 5000 units/ml inj SUBQ SCH ×2 (09:20→21:07)
--- NOTE | 2017-08-19 09:33 | 48 Hour Post Anesthesia Eval ---
Post Anesthesia Evaluation Procedure: Revision and closure of bilateral breast wounds Date of Evaluation: Aug 19, 2017 Time of Evaluation: 09:32 Blood Pressure Systolic: 118 0: 74 Pulse Rate: 72 Respiratory Rate: 22 Temperature (Fahrenheit): 97.6 O2 Sat by Pulse Oximetry: 98 Airway: patent Nausea: No Vomiting: No Pain Intensity: 2 Hydration Status: adequate Cardiopulmonary Status: stable Mental Status/LOC: patient returned to baseline Follow-up Care/Observations: n/a Post-Anesthesia Complications: none Follow-up care needed: N/A YAMILA MUNGUIA M.D. Aug 19, 2017 09:33
[2017-08-19 12:00] VITALS: BP 116/70
--- NOTE | 2017-08-19 12:33 | General Progress Note ---
Assessment/Plan Problem List: (1) Abscess ICD Codes: L02.91 - Cutaneous abscess, unspecified SNOMED: 430312305 (2) Hidradenitis suppurativa ICD Codes: L73.2 - Hidradenitis suppurativa SNOMED: 42556742 (3) Hypertension ICD Codes: I10 - Essential (primary) hypertension SNOMED: 16951842 (4) ELIDA on CPAP ICD Codes: G47.33 - Obstructive sleep apnea (adult) (pediatric) SNOMED: 91650840 (5) Morbid obesity ICD Codes: E66.01 - Morbid (severe) obesity due to excess calories SNOMED: 677436625, [id number] Status: stable Assessment/Plan Appreciate surgery rec's s/p bilateral breast debridement and flap elevation on 08/16/17 s/p bilateral breast wound closure on 08/18/17 Empiric IV ancef F/u cultures Wound care per surgery Cont home meds but hold ARB for now Cont home CPAP Post operative recommendations include: - encourage mobilization/ambulation - encourage incentive spirometry to optimize pulmonary hygiene - DVT/GI prophylaxis as appropriate - ctm CBC and hemodynamics - ctm electrolytes, adjust/replete prn - pain control, supportive care, bowel regimen FULL CODE A total of 31min of extra time was spent on this encounter in addition to normal encounter time for care/coordination and counseling. D/w pt, RN, SW/CM, surgery regarding mgmt and dispo. D/w surgery re postop mgmt Subjective Date patient seen: Aug 19, 2017 Time patient seen: 12:33 ROS Limited/Unobtainable: No Constitutional: Reports: no symptoms HEENT: Reports: no symptoms Cardiovascular: Reports: no symptoms Respiratory: Reports: no symptoms Gastrointestinal/Abdominal: Reports: no symptoms Genitourinary: Reports: no symptoms Neurologic/Psychiatric: Reports: no symptoms Endocrine: Reports: no symptoms Hematologic/Lymphatic: Reports: no symptoms Allergies: Coded Allergies: No Known Allergies (Unverified , 01/19/16) All Systems: reviewed and negative except above Subjective No acute o/n events s/p bilateral breast debridement and flap elevation POD#3 s/p bilateral breast wound closure POD#1 Pain controlled. Denies f/c, n/v, d/c, chest pain, SOB Objective Last 24 Hour Vital Signs Date Time Temp Pulse Resp B/P (MAP) Pulse Ox O2 Delivery O2 Flow Rate FiO2 08/19/17 09:33 207.7 72 22 98 08/19/17 09:16 94 118/66 08/19/17 08:00 18 08/19/17 08:00 97.8 94 18 118/66 98 Room Air 97.8 08/19/17 04:00 98.7 60 17 142/82 99 Room Air 98.7 08/19/17 04:00 17 08/19/17 00:00 18 08/19/17 00:00 98.0 75 18 148/92 98 Room Air 98.0 08/18/17 20:00 18 08/18/17 20:00 98.9 68 18 143/81 95 Room Air 98.9 08/18/17 16:00 18 08/18/17 16:00 98.5 76 18 156/95 98 Room Air 98.5 08/18/17 12:50 74 144/81 08/18/17 12:50 74 144/81 Intake and Output 08/18/17 08/19/17 19:00 07:00 Intake Total 1642.5 ml 195 ml Output Total 80 ml 22 ml Balance 1562.5 ml 173 ml Intake Oral 325 ml 120 ml IV Total 1317.5 ml 75 ml Drainage Total 30 ml 22 ml Estimated Blood Loss 50 ml # Voids 2 1 Height (Feet): 5 Height (Inches): 2.00 Weight (Pounds): 213 Objective General: alert, cooperative, no distress, appears stated age Head: normocephalic, without obvious abnormality, atraumatic Eyes: conjunctivae/corneas clear. PERRL, EOM's intact Throat: lips, mucosa, and tongue normal. MMM Neck: supple, symmetrical, trachea midline, and no JVD Lungs: clear to auscultation bilaterally Heart: regular rate and rhythm, S1, S2 normal, no murmur, click, rub or gallop Abdomen: soft, non-tender, non-distended, bowel sounds normal Extremities: extremities normal, atraumatic, no cyanosis or edema Pulses: 2+ and symmetric Skin: skin color, texture, turgor normal; dressings c/d/i Neurologic: grossly normal, no focal deficits Mynor Addison M.D. Aug 19, 2017 12:33
[2017-08-19] MEDS: PCA HYDROmorphone 1mg/ml 30 ML IV PRN (13:58)
[2017-08-19] MEDS: D5 1/2NS 1,000 ML IV SCH (15:12)
[2017-08-19 16:00] VITALS: BP 117/80
[2017-08-19] MEDS: PCA shift volume MISC SCH (19:05)
[2017-08-19 20:00] VITALS: BP 122/78
[2017-08-19] MEDS: Dyna-Hex 2% Top Sol 2oz TOPIC SCH (21:05)
[2017-08-20] VITALS (7 sets, daily range): BP systolic 111–132; BP diastolic 60–78
[2017-08-20] MEDS: PCA shift volume MISC SCH ×2 (07:00→19:24)
[2017-08-20] MEDS: Docusate 100mg cap ORAL SCH ×2 (09:10→20:38)
[2017-08-20] MEDS: ceFAZolin sod 1 GM in NS 55 ML IVP SCH ×3 (09:10→23:46)
[2017-08-20] MEDS: Heparin 5000 units/ml inj SUBQ SCH ×2 (09:16→20:39)
[2017-08-20] MEDS: D5 1/2NS 1,000 ML IV SCH (12:00)
--- NOTE | 2017-08-20 13:27 | General Progress Note ---
Assessment/Plan Problem List: (1) Abscess ICD Codes: L02.91 - Cutaneous abscess, unspecified SNOMED: 928717074 (2) Hidradenitis suppurativa ICD Codes: L73.2 - Hidradenitis suppurativa SNOMED: 11050892 (3) Hypertension ICD Codes: I10 - Essential (primary) hypertension SNOMED: 52939827 (4) ELIDA on CPAP ICD Codes: G47.33 - Obstructive sleep apnea (adult) (pediatric) SNOMED: 27178198 (5) Morbid obesity ICD Codes: E66.01 - Morbid (severe) obesity due to excess calories SNOMED: 154700926, 32526065123550 Status: stable Assessment/Plan Appreciate surgery rec's s/p bilateral breast debridement and flap elevation on 08/16/17 s/p bilateral breast wound closure on 08/18/17 Empiric IV ancef F/u cultures--ngtd Repeat labs in AM Wound care per surgery Cont home meds but hold ARB for now Cont home CPAP Post operative recommendations include: - encourage mobilization/ambulation - encourage incentive spirometry to optimize pulmonary hygiene - DVT/GI prophylaxis as appropriate - ctm CBC and hemodynamics - ctm electrolytes, adjust/replete prn - pain control, supportive care, bowel regimen FULL CODE A total of 31min of extra time was spent on this encounter in addition to normal encounter time for care/coordination and counseling. D/w pt, RN, SW/CM, surgery regarding mgmt and dispo. D/w surgery re postop mgmt, d/c planning Subjective Date patient seen: Aug 20, 2017 Time patient seen: 13:27 ROS Limited/Unobtainable: No Constitutional: Reports: no symptoms, weakness HEENT: Reports: no symptoms Cardiovascular: Reports: no symptoms Respiratory: Reports: no symptoms Gastrointestinal/Abdominal: Reports: no symptoms Genitourinary: Reports: no symptoms Neurologic/Psychiatric: Reports: no symptoms Endocrine: Reports: no symptoms Hematologic/Lymphatic: Reports: no symptoms Allergies: Coded Allergies: No Known Allergies (Unverified , 01/19/16) All Systems: reviewed and negative except above Subjective No acute o/n events s/p bilateral breast debridement and flap elevation POD#4 s/p bilateral breast wound closure POD#2 Pain controlled. Denies f/c, n/v, d/c, chest pain, SOB. +BM Objective Last 24 Hour Vital Signs Date Time Temp Pulse Resp B/P (MAP) Pulse Ox O2 Delivery O2 Flow Rate FiO2 08/20/17 09:10 75 129/74 08/20/17 08:00 97.2 75 20 129/74 100 Room Air 97.2 08/20/17 08:00 20 08/20/17 04:00 20 08/20/17 04:00 97.8 80 18 118/78 98 Room Air 97.8 08/20/17 00:00 99.8 76 18 122/76 98 Room Air 99.8 08/20/17 00:00 20 08/19/17 20:00 99.8 74 18 122/78 98 Room Air 99.8 08/19/17 20:00 20 08/19/17 16:00 99.7 75 20 117/80 98 Room Air 99.7 08/19/17 16:00 20 08/19/17 14:28 97.7 08/19/17 13:59 20 08/19/17 13:59 20 08/19/17 13:58 97.7 Intake and Output 08/19/17 08/20/17 19:00 07:00 Intake Total 1310 ml 240 ml Output Total 17 ml 11 ml Balance 1293 ml 229 ml Intake Oral 750 ml 240 ml IV Total 560 ml Drainage Total 17 ml 11 ml # Voids 3 2 Height (Feet): 5 Height (Inches): 2.00 Weight (Pounds): 213 Objective General: alert, cooperative, no distress, appears stated age Head: normocephalic, without obvious abnormality, atraumatic Eyes: conjunctivae/corneas clear. PERRL, EOM's intact Throat: lips, mucosa, and tongue normal. MMM Neck: supple, symmetrical, trachea midline, and no JVD Lungs: clear to auscultation bilaterally Heart: regular rate and rhythm, S1, S2 normal, no murmur, click, rub or gallop Abdomen: soft, non-tender, non-distended, bowel sounds normal Extremities: extremities normal, atraumatic, no cyanosis or edema Pulses: 2+ and symmetric Skin: skin color, texture, turgor normal; dressings c/d/i Neurologic: grossly normal, no focal deficits Mynor Addison M.D. Aug 20, 2017 13:27
[2017-08-20] MEDS: PCA HYDROmorphone 1mg/ml 30 ML IV PRN (16:00)
[2017-08-20] MEDS: Dyna-Hex 2% Top Sol 2oz TOPIC SCH (20:38)
[2017-08-21 04:00] VITALS: BP 130/78
[2017-08-21] MEDS: ceFAZolin sod 1 GM in NS 55 ML IVP SCH ×3 (07:02→23:52)
[2017-08-21 07:05] LABS: BASOPHILS % (AUTO) 0.7 % (0.0-2.0); EOSINOPHILS % (AUTO) 5.3 % (0.0-3.0); HEMATOCRIT 33.7 % (37.0-47.0); HEMOGLOBIN 12.3 G/DL (12.0-16.0); LYMPHOCYTES % (AUTO) 23.1 % (20.0-45.0); MEAN CORPUSCULAR VOLUME 83 FL (80-99); MONOCYTES % (AUTO) 8.2 % (1.0-10.0); NEUTROPHILS % (AUTO) 62.7 % (45.0-75.0); PLATELET COUNT 206 K/UL (150-450); RED BLOOD COUNT 4.06 M/UL (4.20-5.40); RED CELL DISTRIBUTION WIDTH 11.2 % (11.6-14.8); WHITE BLOOD COUNT 6.1 K/UL (4.8-10.8)
[2017-08-21 07:11] LABS: ANION GAP 5 mmol/L (5-15); BLOOD UREA NITROGEN 5 mg/dL (7-18); CARBON DIOXIDE 30 MMOL/L (21-32); CHLORIDE 104 MMOL/L (98-107); CREATININE 0.7 MG/DL (0.55-1.30); POTASSIUM 3.1 MMOL/L (3.5-5.1); SODIUM 139 MMOL/L (136-145)
[2017-08-21] MEDS: PCA shift volume MISC SCH ×2 (07:23→19:29)
[2017-08-21 08:15] VITALS: BP 128/77
[2017-08-21] MEDS: Docusate 100mg cap ORAL SCH ×3 (09:16→21:19)
[2017-08-21] MEDS: Heparin 5000 units/ml inj SUBQ SCH ×2 (09:33→21:21)
[2017-08-21 12:00] VITALS: BP 136/86
[2017-08-21 16:00] VITALS: BP 125/78
[2017-08-21] MEDS: PCA HYDROmorphone 1mg/ml 30 ML IV PRN (16:03)
--- NOTE | 2017-08-21 16:20 | General Progress Note ---
Assessment/Plan Problem List: (1) Abscess ICD Codes: L02.91 - Cutaneous abscess, unspecified SNOMED: 574511508 (2) Hidradenitis suppurativa ICD Codes: L73.2 - Hidradenitis suppurativa SNOMED: 51574253 (3) Hypertension ICD Codes: I10 - Essential (primary) hypertension SNOMED: 25026536 (4) ELIDA on CPAP ICD Codes: G47.33 - Obstructive sleep apnea (adult) (pediatric) SNOMED: 92726115 (5) Morbid obesity ICD Codes: E66.01 - Morbid (severe) obesity due to excess calories SNOMED: 726354219, 53876189756493 Status: stable Assessment/Plan Appreciate surgery rec's s/p bilateral breast debridement and flap elevation on 08/16/17 s/p bilateral breast wound closure on 08/18/17 Empiric IV ancef F/u cultures--ngtd Wound care per surgery Cont home meds but hold ARB for now Cont home CPAP Post operative recommendations include: - encourage mobilization/ambulation - encourage incentive spirometry to optimize pulmonary hygiene - DVT/GI prophylaxis as appropriate - ctm CBC and hemodynamics - ctm electrolytes, adjust/replete prn - pain control, supportive care, bowel regimen DC planning, likely home in a few days per surgery FULL CODE A total of 34min of extra time was spent on this encounter in addition to normal encounter time for care/coordination and counseling. D/w pt, RN, SW/CM, surgery regarding mgmt and dispo. D/w surgery re postop mgmt, d/c planning Subjective Date patient seen: Aug 21, 2017 Time patient seen: 16:20 ROS Limited/Unobtainable: No Constitutional: Reports: no symptoms HEENT: Reports: no symptoms Cardiovascular: Reports: no symptoms Respiratory: Reports: no symptoms Gastrointestinal/Abdominal: Reports: no symptoms Genitourinary: Reports: no symptoms Neurologic/Psychiatric: Reports: no symptoms Endocrine: Reports: no symptoms Hematologic/Lymphatic: Reports: no symptoms Allergies: Coded Allergies: No Known Allergies (Unverified , 01/19/16) All Systems: reviewed and negative except above Subjective No acute o/n events s/p bilateral breast debridement and flap elevation POD#5 s/p bilateral breast wound closure POD#3 Pain controlled. Denies f/c, n/v, d/c, chest pain, SOB. +BM Objective Last 24 Hour Vital Signs Date Time Temp Pulse Resp B/P (MAP) Pulse Ox O2 Delivery O2 Flow Rate FiO2 08/21/17 12:00 97.6 63 20 136/86 97 Room Air 97.6 08/21/17 12:00 20 08/21/17 09:17 69 128/77 08/21/17 08:15 97.7 69 18 128/77 98 Room Air 97.7 08/21/17 08:00 18 08/21/17 04:00 17 08/21/17 04:00 97.1 51 17 130/78 97 Room Air 97.1 08/21/17 00:00 18 08/20/17 23:57 98.3 59 17 118/64 97 Room Air 98.3 08/20/17 20:00 18 08/20/17 20:00 98.1 69 17 124/60 97 Room Air 98.1 Intake and Output 08/20/17 08/21/17 19:00 07:00 Intake Total 240 ml 220 ml Output Total 7 ml Balance 240 ml 213 ml Intake Oral 240 ml 220 ml Drainage Total 7 ml # Voids 2 Laboratory Tests 08/21/17 06:00: White Blood Count 6.1, Red Blood Count 4.06L, Hemoglobin 12.3, Hematocrit 33.7L , Mean Corpuscular Volume 83, Mean Corpuscular Hemoglobin 30.2, Mean Corpuscular Hemoglobin Concent 36.4H, Red Cell Distribution Width 11.2L, Platelet Count 206, Mean Platelet Volume 6.7, Neutrophils (%) (Auto) 62.7, Lymphocytes (%) (Auto) 23.1, Monocytes (%) (Auto) 8.2, Eosinophils (%) (Auto) 5.3H, Basophils (%) (Auto) 0.7, Sodium Level 139, Potassium Level 3.1L, Chloride Level 104, Carbon Dioxide Level 30, Anion Gap 5, Blood Urea Nitrogen 5L , Creatinine 0.7, Estimat Glomerular Filtration Rate > 60, Glucose Level 74, Calcium Level 9.0, Magnesium Level 1.6L Height (Feet): 5 Height (Inches): 2.00 Weight (Pounds): 213 Objective General: alert, cooperative, no distress, appears stated age Head: normocephalic, without obvious abnormality, atraumatic Eyes: conjunctivae/corneas clear. PERRL, EOM's intact Throat: lips, mucosa, and tongue normal. MMM Neck: supple, symmetrical, trachea midline, and no JVD Lungs: clear to auscultation bilaterally Heart: regular rate and rhythm, S1, S2 normal, no murmur, click, rub or gallop Abdomen: soft, non-tender, non-distended, bowel sounds normal Extremities: extremities normal, atraumatic, no cyanosis or edema Pulses: 2+ and symmetric Skin: skin color, texture, turgor normal; dressings c/d/i Neurologic: grossly normal, no focal deficits Mynor Addison M.D. Aug 21, 2017 16:20
[2017-08-21 19:55] VITALS: BP 135/83
[2017-08-21] MEDS ORDERED: Rate Change PCA 1 Each MISC PRN (20:15)
[2017-08-21] MEDS: Dyna-Hex 2% Top Sol 2oz TOPIC SCH (21:19)
[2017-08-22] VITALS: BP 123/74
[2017-08-22 04:00] VITALS: BP 106/67
[2017-08-22] MEDS ORDERED: PCA shift volume MISC SCH (07:00)
[2017-08-22] MEDS: ceFAZolin sod 1 GM in NS 55 ML IVP SCH ×3 (07:25→23:56)
[2017-08-22] MEDS ORDERED: PCA HYDROmorphone 1mg/ml 30 ML IV PRN (07:45)
[2017-08-22 08:00] VITALS: BP 120/61
[2017-08-22] MEDS: Docusate 100mg cap ORAL SCH ×2 (08:36→20:54)
[2017-08-22] MEDS: Heparin 5000 units/ml inj SUBQ SCH ×2 (08:38→20:54)
[2017-08-22 12:00] VITALS: BP 137/72
--- NOTE | 2017-08-22 13:54 | General Progress Note ---
Progress Note Progress Note Pt seen and examined. Doing well. All wounds healing well. Will dc drain in Am and can be discharged by Thur Am. RAMIREZ Jaime MD Aug 22, 2017 13:54
--- NOTE | 2017-08-22 14:25 | General Progress Note ---
Assessment/Plan Problem List: (1) Abscess ICD Codes: L02.91 - Cutaneous abscess, unspecified SNOMED: 363881256 (2) Hidradenitis suppurativa ICD Codes: L73.2 - Hidradenitis suppurativa SNOMED: 86587199 (3) Hypertension ICD Codes: I10 - Essential (primary) hypertension SNOMED: 80116321 (4) ELIDA on CPAP ICD Codes: G47.33 - Obstructive sleep apnea (adult) (pediatric) SNOMED: 75624572 (5) Morbid obesity ICD Codes: E66.01 - Morbid (severe) obesity due to excess calories SNOMED: 136508072, 71838344082131 Status: stable Assessment/Plan Appreciate surgery rec's s/p bilateral breast debridement and flap elevation on 08/16/17 s/p bilateral breast wound closure on 08/18/17 Empiric IV ancef F/u cultures--ngtd Wound care per surgery Cont home meds but hold ARB for now, OK to resume on d/c Cont home CPAP Post operative recommendations include: - encourage mobilization/ambulation - encourage incentive spirometry to optimize pulmonary hygiene - DVT/GI prophylaxis as appropriate - ctm CBC and hemodynamics - ctm electrolytes, adjust/replete prn - pain control, supportive care, bowel regimen DC planning, likely home on per surgery FULL CODE A total of 31min of extra time was spent on this encounter in addition to normal encounter time for care/coordination and counseling. D/w pt, RN, SW/CM, surgery regarding mgmt and dispo. D/w surgery re postop mgmt, d/c planning Subjective Date patient seen: Aug 22, 2017 Time patient seen: 14:25 ROS Limited/Unobtainable: No Constitutional: Reports: no symptoms HEENT: Reports: no symptoms Cardiovascular: Reports: no symptoms Respiratory: Reports: no symptoms Gastrointestinal/Abdominal: Reports: no symptoms Genitourinary: Reports: no symptoms Neurologic/Psychiatric: Reports: no symptoms Endocrine: Reports: no symptoms Hematologic/Lymphatic: Reports: no symptoms Allergies: Coded Allergies: No Known Allergies (Unverified , 01/19/16) All Systems: reviewed and negative except above Subjective No acute o/n events s/p bilateral breast debridement and flap elevation POD#6 s/p bilateral breast wound closure POD#4 Pain controlled. Denies f/c, n/v, d/c, chest pain, SOB. +BM Objective Last 24 Hour Vital Signs Date Time Temp Pulse Resp B/P (MAP) Pulse Ox O2 Delivery O2 Flow Rate FiO2 08/22/17 12:00 16 08/22/17 12:00 97.4 55 20 137/72 98 Bi-pap 97.4 08/22/17 08:36 78 120/61 08/22/17 08:00 16 08/22/17 08:00 97.4 78 18 120/61 97 Bi-pap 97.4 08/22/17 04:00 16 08/22/17 04:00 97.0 47 16 106/67 99 Bi-pap 97.0 08/22/17 00:00 97.3 46 17 123/74 100 Bi-pap 97.3 08/22/17 00:00 20 08/21/17 20:00 20 08/21/17 19:55 97.5 69 18 135/83 95 97.5 08/21/17 16:00 97.7 67 20 125/78 95 Room Air 97.7 08/21/17 16:00 20 08/21/17 16:00 20 Intake and Output 08/21/17 08/22/17 19:00 07:00 Intake Total 400 ml 300 ml Output Total 20 ml 3 ml Balance 380 ml 297 ml Intake Oral 400 ml 300 ml Drainage Total 20 ml 3 ml # Voids 3 2 Height (Feet): 5 Height (Inches): 2.00 Weight (Pounds): 213 Objective General: alert, cooperative, no distress, appears stated age Head: normocephalic, without obvious abnormality, atraumatic Eyes: conjunctivae/corneas clear. PERRL, EOM's intact Throat: lips, mucosa, and tongue normal. MMM Neck: supple, symmetrical, trachea midline, and no JVD Lungs: clear to auscultation bilaterally Heart: regular rate and rhythm, S1, S2 normal, no murmur, click, rub or gallop Abdomen: soft, non-tender, non-distended, bowel sounds normal Extremities: extremities normal, atraumatic, no cyanosis or edema Pulses: 2+ and symmetric Skin: skin color, texture, turgor normal; dressings c/d/i Neurologic: grossly normal, no focal deficits Mynor Addison M.D. 6, 2018 14:25
[2017-08-22] MEDS ORDERED: KEFLEX500 MG ORAL (15:10)
[2017-08-22 16:00] VITALS: BP 140/71
[2017-08-22] MEDS ORDERED: HYDROcodone/Acetamin 10/325 tab ORAL PRN (16:15)
[2017-08-22 20:00] VITALS: BP 128/72
[2017-08-22] MEDS ORDERED: D5 1/2NS 1000ml IV ONE (20:26)
[2017-08-22] MEDS ORDERED: NS 275ml ONE (20:26)
[2017-08-22] MEDS ORDERED: Tubing IV Secondary IV ONE (20:26)
[2017-08-22] MEDS ORDERED: NS 500ML ONE (20:26)
[2017-08-22] MEDS: Dyna-Hex 2% Top Sol 2oz TOPIC SCH (20:48)
[2017-08-23] VITALS: BP 109/68
[2017-08-23 04:00] VITALS: BP 121/74
[2017-08-23 08:00] VITALS: BP 135/83
[2017-08-23] MEDS: Docusate 100mg cap ORAL SCH ×2 (08:36→20:48)
[2017-08-23] MEDS: Heparin 5000 units/ml inj SUBQ SCH ×2 (08:39→20:50)
[2017-08-23 11:39] VITALS: BP 131/73
[2017-08-23 16:00] VITALS: BP 128/77
--- NOTE | 2017-08-23 16:18 | General Progress Note ---
Assessment/Plan Problem List: (1) Abscess ICD Codes: L02.91 - Cutaneous abscess, unspecified SNOMED: 481691148 (2) Hidradenitis suppurativa ICD Codes: L73.2 - Hidradenitis suppurativa SNOMED: 76892317 (3) Hypertension ICD Codes: I10 - Essential (primary) hypertension SNOMED: 82337022 (4) ELIDA on CPAP ICD Codes: G47.33 - Obstructive sleep apnea (adult) (pediatric) SNOMED: 63200209 (5) Morbid obesity ICD Codes: E66.01 - Morbid (severe) obesity due to excess calories SNOMED: 984245010, 20034069849030 Status: stable Assessment/Plan Appreciate surgery rec's s/p bilateral breast debridement and flap elevation on 08/16/17 s/p bilateral breast wound closure on 08/18/17 Empiric IV ancef F/u cultures--ngtd Wound care per surgery Cont home meds but hold ARB for now, OK to resume on d/c Cont home CPAP Post operative recommendations include: - encourage mobilization/ambulation - encourage incentive spirometry to optimize pulmonary hygiene - DVT/GI prophylaxis as appropriate - ctm CBC and hemodynamics - ctm electrolytes, adjust/replete prn - pain control, supportive care, bowel regimen DC planning, likely home tomorrow per surgery FULL CODE A total of 33min of extra time was spent on this encounter in addition to normal encounter time for care/coordination and counseling. D/w pt, RN, SW/CM, surgery regarding mgmt and dispo. D/w surgery re postop mgmt, d/c planning Subjective Date patient seen: Aug 23, 2017 Time patient seen: 16:18 ROS Limited/Unobtainable: No Constitutional: Reports: no symptoms HEENT: Reports: no symptoms Cardiovascular: Reports: no symptoms Respiratory: Reports: no symptoms Gastrointestinal/Abdominal: Reports: no symptoms Genitourinary: Reports: no symptoms Neurologic/Psychiatric: Reports: no symptoms Endocrine: Reports: no symptoms Hematologic/Lymphatic: Reports: no symptoms Allergies: Coded Allergies: No Known Allergies (Unverified , 01/19/16) Subjective No acute o/n events s/p bilateral breast debridement and flap elevation POD#7 s/p bilateral breast wound closure POD#5 Pain controlled. Denies f/c, n/v, d/c, chest pain, SOB. +BM Objective Last 24 Hour Vital Signs Date Time Temp Pulse Resp B/P (MAP) Pulse Ox O2 Delivery O2 Flow Rate FiO2 08/23/17 11:39 97.3 60 18 131/73 100 Room Air 97.3 08/23/17 08:36 73 135/83 08/23/17 08:00 97.6 73 20 135/83 100 Room Air 97.6 08/23/17 04:00 97.9 46 16 121/74 99 Bi-pap 97.9 08/23/17 00:00 97.9 57 17 109/68 97 Bi-pap 97.9 08/22/17 20:00 98.2 66 17 128/72 96 Bi-pap 98.2 Intake and Output 08/22/17 08/23/17 19:00 07:00 Intake Total 400 ml 300 ml Output Total 7 ml 10 ml Balance 393 ml 290 ml Intake Oral 400 ml 300 ml Drainage Total 7 ml 10 ml # Voids 3 2 Height (Feet): 5 Height (Inches): 2.00 Weight (Pounds): 213 Objective General: alert, cooperative, no distress, appears stated age Head: normocephalic, without obvious abnormality, atraumatic Eyes: conjunctivae/corneas clear. PERRL, EOM's intact Throat: lips, mucosa, and tongue normal. MMM Neck: supple, symmetrical, trachea midline, and no JVD Lungs: clear to auscultation bilaterally Heart: regular rate and rhythm, S1, S2 normal, no murmur, click, rub or gallop Abdomen: soft, non-tender, non-distended, bowel sounds normal Extremities: extremities normal, atraumatic, no cyanosis or edema Pulses: 2+ and symmetric Skin: skin color, texture, turgor normal; dressings c/d/i Neurologic: grossly normal, no focal deficits Mynor Addison M.D. Aug 23, 2017 16:18
[2017-08-23] MEDS: Cephalexin 500mg cap ORAL SCH ×2 (18:03→20:49)
[2017-08-23 20:00] VITALS: BP 130/72
[2017-08-24] VITALS: BP 117/63
[2017-08-24 04:00] VITALS: BP 119/70
[2017-08-24 08:00] VITALS: BP 129/73
[2017-08-24] MEDS: Heparin 5000 units/ml inj SUBQ SCH (09:00)
[2017-08-24 09:05] VITALS: BP 129/73
[2017-08-24] MEDS: Docusate 100mg cap ORAL SCH (09:05)
[2017-08-24] MEDS: Cephalexin 500mg cap ORAL SCH (09:05)
[2017-08-24] MEDS ORDERED: Tubing IV Secondary IV ONE (10:29)
[2017-08-24] MEDS ORDERED: D5 1/2NS 1000ml IV ONE (10:29)
[2017-08-24] MEDS ORDERED: NS 500ML ONE (10:29)
--- NOTE | 2017-08-30 09:11 | Discharge Summary ---
Discharge Summary Hospital Course Date of Admission Aug 15, 2017 at 12:46 Date of Discharge Aug 24, 2017 at 10:30 Admitting Diagnosis Abscess, hidradenitis suppurative Reason for Hospitalization: Abscess, hidradenitis suppurative HPI 52y/o female with pmh of HTN, ELIDA on CPAP, Hidradenitis suppurative who presents with with b/l breast lesions w/ pain/swelling/redness. Pt notes worsening symptoms for the past few weeks. Denies f/c, n/v, d/c, chest pain, SOB. Pt states at baseline able to ambulate several blocks and climb at least a flight of stairs w/o symptoms. She also exercises. She was here in Jan 2016 for b/l axillary HS lesions. Her first surgery was complicated by postoperative respiratory failure and she was kept intubated and extubated the following day. It was thought secondary to her ELIDA and some fluid overload. Her 2nd surgery went better. She denies any new cardiac or pulmonary issues since. Consultations Plastic surgery Procedures Bilateral breast debridement and flap elevation on 08/16/17 Bilateral breast wound closure on 08/18/17 Hospital Course Pt was admitted and placed on empiric IV antibiotics. She was seen by plastic surgery. She underwent bilateral breast debridement and flap elevation on , followed by bilateral breast wound closure on 08/18/17. Pt tolerated the procedure well. Once pain controlled and wounds stable, pt was discharged home on oral pain meds and oral antibiotics. Discharge physical exam: General: alert, cooperative, no distress, appears stated age, obese Head: normocephalic, without obvious abnormality, atraumatic Eyes: conjunctivae/corneas clear. PERRL, EOM's intact Throat: lips, mucosa, and tongue normal. MMM Neck: supple, symmetrical, trachea midline, and no JVD Lungs: clear to auscultation bilaterally Heart: regular rate and rhythm, S1, S2 normal, no murmur, click, rub or gallop Abdomen: soft, non-tender, non-distended, bowel sounds normal Extremities: extremities normal, atraumatic, no cyanosis or edema Pulses: 2+ and symmetric Skin: dressings c/d/i Neurologic: grossly normal, no focal deficits Discharge diagnoses: (1) Abscess ICD Codes: L02.91 - Cutaneous abscess, unspecified SNOMED: 445172311 (2) Hidradenitis suppurativa ICD Codes: L73.2 - Hidradenitis suppurativa SNOMED: 72139420 (3) Hypertension ICD Codes: I10 - Essential (primary) hypertension SNOMED: 93675362 (4) ELIDA on CPAP ICD Codes: G47.33 - Obstructive sleep apnea (adult) (pediatric) SNOMED: 37921729 (5) Morbid obesity ICD Codes: E66.01 - Morbid (severe) obesity due to excess calories Discharge Medications New Medications: Cephalexin* (Keflex*) 500 Mg Capsule 500 MG ORAL Q6H for 7 Days, #28 CAP 0 Refills Continued Medications: Amlodipine Bes/Olmesartan Med 10-40 Mg Tablet (Janette 10-40 Mg Tablet) 1 Each Tablet 1 TAB ORAL DAILY, TAB Multivitamins* (Multivitamins*) 1 Each Tablet 1 TAB ORAL DAILY, TAB 0 Refills Nebivolol Hcl (Bystolic*) 10 Mg Tablet 10 MG ORAL DAILY, TAB Discharge Condition Upon Discharge: stable Discharge Disposition Patient was discharged to Home (01) Discharge Diagnoses: Mynor Addison M.D. Aug 30, 2017 09:11
== END 2017-08-24 10:30 | disposition home or self-care (01) | DRG 578 ==
LOC: EMR 11:35 → 3E 12:46 → EDBEDREQ 13:01
DX: L73.2 Hidradenitis suppurativa (principal); E66.01 Morbid (severe) obesity due to excess calories; I10 Essential (primary) hypertension; N61.1 Abscess of the breast and nipple; G47.33 Obstructive sleep apnea (adult) (pediatric); Z68.39 Body mass index [BMI] 39.0-39.9, adult; E03.9 Hypothyroidism, unspecified
CPT/HCPCS: 36415; 36569; 71045; 76937; 80048; 80053; 83735; 85025; 85610; 85730; 87040; 93005; 93306; 94003; 94150; 99285; J2250; J2405; J8499